=== PATIENT | female | born 1985 | race American Indian/Alaskan Native ===

== ENCOUNTER 2020-08-29 22:55 | Emergency (ER) | payer SELFPAY ==
[2020-08-30 01:13] VITALS: BP 153/90
[2020-08-30 01:47] LABS: Hemoglobin 13.7 gm/dl (10.1-14.3)
[2020-08-30 02:04] LABS: BUN/Creatinine Ratio 29; Blood Urea Nitrogen 23 mg/dL (7-17); Calcium 9.8 mg/dL (8.4-10.2); Hemolysis Index 11
[2020-08-30] MEDS ORDERED: INSULIN GLARGINE 100 UNITS/ML SUB-Q ONE (10:30)
--- NOTE | 2020-08-30 10:30 | Emergency Department Report ---
ED Dizziness HPI - General Chief Complaint: Dizziness Stated Complaint: HYPERGLYCEMIA, LIGHTHEADEDNESS Time Seen by Provider: 08/30/20 09:47 Source: patient, EMS Mode of arrival: Ambulatory Limitations: No Limitations - History of Present Illness Initial Comments: 35-year-old female with a past medical history of diabetes currently on insulin, as well as a past medical history of hyperlipidemia, hypokalemia, DKA, and hypertension presented to the ER yesterday via EMS with complaints of feeling lightheaded and dizzy. Patient states that his symptoms started yesterday. She states that she thinks it was related to what she was doing at the time, she states she was watching something spinning when her symptoms started. But she was concerned that it could be related to her blood sugar being elevated. She states that she has been out of her NovoLog, and Lantus for the past 2 days. She states that she has no way of checking her blood sugar at home. Patient states that she recently moved here from [place] in April and has not been able to establish with a local primary care doctor as yet. Patient has been in the ER for about 10 hours, she states that since has been in the ER she is feeling much better. She does report having a swollen lymph node to the right anterior aspect of her neck which she noticed 3 months ago and she states it has been gradually getting bigger. She denies any sore throat or difficulty swallowing. She denies any ear pain, she denies any rash to her scalp, fever or chills. She also denies any chest pain, shortness of breath, vision changes, focal weakness, abdominal pain, nausea or vomiting or any other symptoms at this time. Patient states that she also is out of her blood pressure medication, lisinopril as well as her Crestor. Complaint: dizziness, lightheadedness -: Sudden (yesterday ) - Related Data Previous Rx's Medication Instructions Recorded Last Taken Type Insulin Glargine,Hum.rec.anlog 80 unit SQ DAILY #30 insuln.pen 08/30/20 Unknown Rx [Lantus Solostar] Insulin NPH Hum/Reg Insulin Hm 5 unit SQ TID #15 insuln.pen 08/30/20 Unknown Rx [Novolin 70-30 Flexpen] Rosuvastatin Calcium [Crestor] 20 mg PO DAILY #30 tablet 08/30/20 Unknown Rx cephALEXin [Keflex] 500 mg PO Q8HR #21 capsule 08/30/20 Unknown Rx lisinopriL [Zestril TAB] 20 mg PO QDAY #30 tablet 08/30/20 Unknown Rx Allergies Allergy/AdvReac Type Severity Reaction Status Date / Time No Known Allergies Allergy Unverified 08/30/20 01:16 ED Review of Systems ROS: Stated complaint: HYPERGLYCEMIA, LIGHTHEADEDNESS Other details as noted in HPI Comment: All other systems reviewed and negative Constitutional: denies: chills, fever Eyes: denies: eye pain, eye discharge, vision change ENT: denies: ear pain, throat pain, congestion Respiratory: denies: cough, shortness of breath, SOB with exertion, SOB at rest, wheezing Cardiovascular: denies: chest pain, palpitations Endocrine: no symptoms reported Gastrointestinal: denies: abdominal pain, nausea, vomiting, diarrhea, constipation Genitourinary: denies: urgency, dysuria, frequency, hematuria, discharge Musculoskeletal: denies: back pain, joint swelling, arthralgia Skin: denies: rash, lesions Neurological: vertigo. denies: headache, weakness, numbness, paresthesias, con fusion, abnormal gait Psychiatric: denies: anxiety, depression Hematological/Lymphatic: denies: easy bleeding, easy bruising ED Past Medical Hx - Past Medical History Previous Medical History?: Yes Hx Hypertension: Yes Hx Diabetes: Yes Additional medical history: High Cholesterol, Hypokalemia - Surgical History Past Surgical History?: Yes Additional Surgical History: Skin graft on back - Social History Smoking Status: Current Some Day Smoker - Medications Home Medications: Home Medications Medication Instructions Recorded Confirmed Last Taken Type Insulin Glargine,Hum.rec.anlog 80 unit SQ DAILY #30 insuln.pen 08/30/20 Unknown Rx [Lantus Solostar] Insulin NPH Hum/Reg Insulin Hm 5 unit SQ TID #15 insuln.pen 08/30/20 Unknown Rx [Novolin 70-30 Flexpen] Rosuvastatin Calcium [Crestor] 20 mg PO DAILY #30 tablet 08/30/20 Unknown Rx cephALEXin [Keflex] 500 mg PO Q8HR #21 capsule 08/30/20 Unknown Rx lisinopriL [Zestril TAB] 20 mg PO QDAY #30 tablet 08/30/20 Unknown Rx ED Physical Exam - General Limitations: No Limitations General appearance: alert, in no apparent distress - Head Head exam: Present: atraumatic, normocephalic - Eye Eye exam: Present: normal appearance - ENT ENT exam: Present: normal exam, mucous membranes dry - Neck Neck exam: Present: normal inspection, lymphadenopathy (swollen lymph node noted just below angle of right mandible. It measures ~3cm x 5cm. It is mildly ttp but no cellulitis. ) - Respiratory Respiratory exam: Present: normal lung sounds bilaterally - Cardiovascular Cardiovascular Exam: Present: regular rate, normal rhythm, normal heart sounds - GI/Abdominal GI/Abdominal exam: Present: soft. Absent: distended, tenderness - Neurological Exam Neurological exam: Present: alert, oriented X3, CN II-XII intact, normal gait - Psychiatric Psychiatric exam: Present: normal affect, normal mood - Skin Skin exam: Present: intact ED Course Vital Signs 08/30/20 01:11 Temperature 97.7 F Pulse Rate 76 Respiratory 17 Rate Blood Pressure 153/90 O2 Sat by Pulse 100 Oximetry ED Medical Decision Making - Lab Data Result diagrams: 08/30/20 10:10 08/30/20 01:30 - EKG Data EKG shows normal: sinus rhythm Rate: normal (74) - EKG Data Interpretation: other 08/30/20 11:09 No STEMI or significant dysrhythmia or signs of ischemic changes - Radiology Data Radiology results: report reviewed - Medical Decision Making Patient came into the ER today complaining of feeling dizzy and lightheaded. She states that she was concerned that it could be related to her sugar being elevated as she had been out of insulin for the past 2 days. He has also been out of her blood pressure medication, and her cholesterol medication. She currently does not have a primary care doctor. Patient reported feeling better since she has been in the ER. Labs reviewed, blood glucose on CMP was 238, FSBS was 155; no evidence of DKA on the labs. CBC was unremarkable, troponin normal, EKG showed no acute ischemic changes or significant dysrhythmia. Patient overall is well-appearing, not toxic and does not appear to be in any acute distress. She is awake alert and oriented x3 and neurologically intact. She is ambulatory in the ER with normal gait. The significant dehydration. Vital signs stable. Her history, exam, and diagnostic testing and current condition does not suggest meningitis, stroke, sepsis, subarachnoid hemorrhage, intracranial bleeding, acute coronary syndrome, PE or any other significant pathology war ranting further testing, continued ED treatment, admission, specialist consultation at this time. Her condition is stable and appropriate for discharge. Patient encouraged to get her medications filled and to start taking it. Patient given referral to local PCP for follow-up. Patient stable at time of discharge. Critical care attestation.: If time is entered above; I have spent that time in minutes in the direct care of this critically ill patient, excluding procedure time. ED Disposition Clinical Impression: Hyperglycemia, Non compliance w medication regimen, Dizziness, nonspecific, Medication refill, Cervical lymphadenitis Disposition: TO HOME OR SELFCARE Is pt being admited?: No Does the pt Need Aspirin: No Condition: Stable Instructions: Hyperglycemia, [id number], Dizziness, [id number] Additional Instructions: I recommend that you get the medications filled and start taking your meds. Take the keflex as prescribed for your swollen lymph node but You should still follow up with general surgeon for biopsy of not better. Follow up with The PCP listed on your d/c instructions. I recommend follow up with local medicaid office to have your medicaid transferred. Return to ED if your symptoms worsens or changes. Prescriptions: Rosuvastatin Calcium [Crestor] 20 mg PO DAILY #30 tablet cephALEXin [Keflex] 500 mg PO Q8HR #21 capsule Insulin Glargine,Hum.rec.anlog [Lantus Solostar] 80 unit SQ DAILY #30 insuln.pen Insulin NPH Hum/Reg Insulin Hm [Novolin 70-30 Flexpen] 5 unit SQ TID #15 insuln.pen lisinopriL [Zestril TAB] 20 mg PO QDAY #30 tablet Referrals: PRIMARY MD LONNIE [Primary Care Provider] - 3-5 Days LUCY HARTMAN MD [Staff Physician] - 3-5 Days Time of Disposition: 10:58
[2020-08-30 10:31] LABS: Basophils # (Auto) 0.1 K/mm3 (0.0-0.1); Basophils % (Auto) 2.6 % (0.0-1.8); Eosinophils # (Auto) 0.1 K/mm3 (0.0-0.4); Eosinophils % (Auto) 2.3 % (0.0-4.3); Hematocrit 43.8 % (30.3-42.9); Hemoglobin 14.5 gm/dl (10.1-14.3); Lymphocytes % (Auto) 38.5 % (13.4-35.0); Mean Corpuscular HGB Conc 33 % (30-34); Mean Corpuscular Volume 86 fl (79-97); Monocytes # (Auto) 0.3 K/mm3 (0.0-0.8); Monocytes % (Auto) 6.3 % (0.0-7.3); Platelet Count 364 K/mm3 (140-440); Red Blood Count 5.12 M/mm3 (3.65-5.03); Red Cell Distribution Width 15.4 % (13.2-15.2)
[2020-08-30 11:05] LABS: Bilirubin,Urine NEG (Negative); Blood,Urine NEG (Negative); Color,Urine Yellow (Yellow); Mucus,Urine 1+ /HPF; Urobilinogen,Urine < 2.0 mg/dL (<2.0)
== END 2020-08-30 11:45 | disposition home or self-care (01) ==
LOC: ED 22:55
DX: E11.65 Type 2 diabetes mellitus with hyperglycemia (principal); I88.8 Other nonspecific lymphadenitis; Z76.0 Encounter for issue of repeat prescription
CPT/HCPCS: 36415; 80048; 80320; 81001; 82550; 82962; 83735; 84443; 84484; 84702; 84703; 85014; 85018; 85025; 85049; 93005; 96372; G0480; J1815